=== PATIENT | female | born 1960 | race Two or more races ===

== ENCOUNTER 2018-02-01 16:10 | Inpatient (IN) | payer MEDICAID ==
[~2018-02-01] VITALS: Ht 154.9 cm; Wt 49.9 kg
[~2018-02-01 16:10] MED LIST: BENA40TA7 OR; CARI250T PO; LORA-205 OR; NOR10T PO; SERT-160 OR; SIMV-13 OR
[2018-02-01] MEDS ORDERED: LORazepam 2MG/ML-1ML VIAL IV ONE (16:45)
[2018-02-01] MEDS ORDERED: ASPirin 81 mg TAB PO ONE (16:45)
[2018-02-01 16:48] LABS: Basophils # (auto) 0 uL; Eosinophils # (auto) 0.1 uL; Eosinophils % (auto) 3.2 % (0.0-7.0); Hematocrit 41.1 % (36.0-46.0); Hemoglobin 14.1 g/dL (12.2-16.2); Lymphocytes # (auto) 1.4 uL; Lymphocytes % (auto) 29.8 % (10.0-50.0); Mean Corpuscular Hemoglobin 31.6 pg (28.0-32.0); Mean Corpuscular Hgb Conc. 34.3 g/dL (32.0-36.0); Monocytes # (auto) 0.6 uL; Monocytes % (auto) 12.1 % (0.0-12.0); Neutrophils # (auto) 2.5 uL; Neutrophils % (auto) 53.9 % (37.0-80.0); Nucleated Red Blood Cells % 0.1 %; Platelet Count (auto) 179 10^3/uL (140-450); Red Blood Cells 4.47 10^6/uL (4.0-5.20); White Blood Cell 4.6 10^3/uL (4.4-10.8)
[2018-02-01 17:07] LABS: Albumin 3.3 g/dL (3.4-5.0); Anion Gap 10 (5-15); Blood Urea Nitrogen 11 mg/dL (7-18); Calcium 8.3 mg/dL (8.5-10.1); Carbon Dioxide 24 mmol/L (21-32); Chloride 107 mmol/L (98-107); Glucose 109 mg/dL (74-106); Magnesium 1.7 mg/dL (1.6-2.6); Potassium 3.7 mmol/L (3.5-5.1); Sodium 141 mmol/L (136-145)
[2018-02-01 17:09] LABS: Alanine Aminotransferase 24 U/L (13-56); Aspartate Aminotransferase 21 U/L (15-37); BUN/Creatinine Ratio 10.9; GFR African American 72 mL/min; GFR Non-African American 60 mL/min
[2018-02-01 17:16] LABS: Alkaline Phosphatase 75 U/L (45-117); Bilirubin, Total 0.8 mg/dL (0.2-1.0); Total Protein 6.6 g/dL (6.4-8.2)
[2018-02-01] MEDS ORDERED: SODIUM CHLORIDE 0.9% 500 ML IV ONE (18:30)
[2018-02-01] MEDS ORDERED: ALUM & MAG HYDROX-SIMETH LIQ(MAALOX) 30 ML PO ONE (19:15)
[2018-02-01] MEDS ORDERED: MORPHINE SULF INJ 2 MG/ML SYRINGE 1ML IV PRN (19:15)
[2018-02-01] MEDS ORDERED: ZOLPIDEM TARTRATE 5 MG TAB PO PRN (19:15)
[2018-02-01] MEDS ORDERED: NITROGLYCERIN 0.4 MG SL TAB SL PRN ×2 (19:15)
[2018-02-01] MEDS ORDERED: ONDANSETRON HCL 4 MG/2 ML VIAL IV PRN (19:15)
[2018-02-01] MEDS ORDERED: MORPHINE SULFATE 4 MG/ML SYR/VIAL IV PRN (19:15)
[2018-02-01] MEDS ORDERED: DEXTROSE (50%) 50ML SYRG IV PRN (19:15)
[2018-02-01] MEDS ORDERED: hydrOXYzine HCL 10 MG TAB PO PRN (19:30)
[2018-02-01] MEDS ORDERED: cloNIDine HCL 0.1 MG TAB PO PRN (19:30)
[2018-02-01 21:36] LABS: Urine Bacteria FEW /hpf (None Seen); Urine Blood Negative /uL (Negative); Urine Specific Gravity 1.005 (1.001-1.035); Urine WBC 1 /hpf (0 - 5)
[2018-02-01 22:00] VITALS: BP 119/62
[2018-02-01] MEDS: busPIRone HCL 10 MG TAB PO SCH (22:00)
[2018-02-01] MEDS: GABAPENTIN 100 MG CAP PO SCH (22:00)
[2018-02-01] MEDS: SODIUM CHLOR 0.9% PF (SALINE LOCK) 10ML VIAL/SYR IV SCH (22:00)
[2018-02-01] MEDS: cloNIDine HCL 0.1 MG TAB PO SCH (22:00)
[2018-02-01] MEDS: ATORVASTATIN 20 MG TAB PO SCH (22:00)
[2018-02-01] MEDS: InsuLIN REG 1unit/0.01ml Soln (100units/ml) SC SCH (22:45)
[2018-02-01] MEDS: ACCU-CHEK COMFORT CURVE STRIP VI SCH (22:46)
[2018-02-01] MEDS: CARVEDILOL 3.125 MG TAB PO SCH (22:48)
[2018-02-01] MEDS ORDERED: GABA100C9 PO (23:47)
[2018-02-01] MEDS ORDERED: ZOLP5TAB5 PO (23:47)
[2018-02-01] MEDS ORDERED: CLON0.1T PO (23:47)
[2018-02-01] MEDS ORDERED: HYDR1CAP27 PO (23:47)
[2018-02-01] MEDS ORDERED: BUSP5TAB51 PO (23:47)
[2018-02-02 04:49] VITALS: BP 93/55
[2018-02-02] MEDS: cloNIDine HCL 0.1 MG TAB PO SCH ×3 (05:08→21:46)
[2018-02-02] MEDS: SODIUM CHLOR 0.9% PF (SALINE LOCK) 10ML VIAL/SYR IV SCH ×3 (05:09→21:46)
[2018-02-02] MEDS: InsuLIN REG 1unit/0.01ml Soln (100units/ml) SC SCH ×4 (06:01→22:01)
[2018-02-02] MEDS: ACCU-CHEK COMFORT CURVE STRIP VI SCH ×4 (06:02→22:00)
[2018-02-02 07:55] VITALS: BP 100/66
[2018-02-02 08:00] LABS: Basophils # (auto) 0 uL; Basophils % (auto) 0.9 % (0.0-2.0); Eosinophils # (auto) 0.2 uL; Eosinophils % (auto) 4.3 % (0.0-7.0); Hematocrit 43.1 % (36.0-46.0); Hemoglobin 14.5 g/dL (12.2-16.2); Lymphocytes # (auto) 1.4 uL; Lymphocytes % (auto) 28.5 % (10.0-50.0); Mean Corpuscular Hemoglobin 30.9 pg (28.0-32.0); Mean Corpuscular Hgb Conc. 33.7 g/dL (32.0-36.0); Mean Corpuscular Volume 91.8 fL (80.0-100.0); Monocytes # (auto) 0.5 uL; Monocytes % (auto) 10.3 % (0.0-12.0); Neutrophils # (auto) 2.7 uL; Platelet Count (auto) 185 10^3/uL (140-450); Red Blood Cells 4.69 10^6/uL (4.0-5.20); Red Cell Distribution Width 13.8 % (11.8-14.3); White Blood Cell 4.8 10^3/uL (4.4-10.8)
[2018-02-02 08:23] LABS: Albumin 3.3 g/dL (3.4-5.0); BUN/Creatinine Ratio 13.5; Bilirubin, Total 0.4 mg/dL (0.2-1.0); Calcium 9.4 mg/dL (8.5-10.1); Magnesium 1.9 mg/dL (1.6-2.6); Potassium 4.5 mmol/L (3.5-5.1); Total Protein 6.6 g/dL (6.4-8.2)
[2018-02-02] MEDS: DOCUSATE SOD 100 MG CAP PO SCH (10:00)
[2018-02-02] MEDS: CLOPIDOGREL BISULFATE 75 MG TAB PO SCH (10:00)
[2018-02-02] MEDS: CARVEDILOL 3.125 MG TAB PO SCH ×2 (10:00→21:46)
[2018-02-02] MEDS: ASPirin 81 mg TAB PO SCH (10:00)
[2018-02-02] MEDS: busPIRone HCL 10 MG TAB PO SCH ×2 (10:00→21:46)
[2018-02-02] MEDS: BENAZEPRIL HCL 10 MG TAB PO SCH (10:00)
[2018-02-02] MEDS: GABAPENTIN 100 MG CAP PO SCH ×2 (10:42→21:45)
[2018-02-02] MEDS: LORazepam 0.5 MG TAB PO PRN ×2 (10:47→21:43)
[2018-02-02 12:18] VITALS: BP 102/66
[2018-02-02 17:01] VITALS: BP 113/58
[2018-02-02] MEDS: ACETAMINOPHEN 325 MG TAB PO PRN (21:47)
[2018-02-02] MEDS: ATORVASTATIN 20 MG TAB PO SCH (21:48)
[2018-02-02 21:58] VITALS: BP 139/96
[2018-02-03] VITALS (8 sets, daily range): BP systolic 86–116; BP diastolic 56–75
[2018-02-03] MEDS: ACETAMINOPHEN 325 MG TAB PO PRN (02:24)
[2018-02-03] MEDS: cloNIDine HCL 0.1 MG TAB PO SCH ×2 (06:00→14:00)
[2018-02-03] MEDS: LORazepam 0.5 MG TAB PO PRN ×2 (06:18→14:19)
[2018-02-03] MEDS: ACCU-CHEK COMFORT CURVE STRIP VI SCH ×3 (06:19→17:07)
[2018-02-03] MEDS: SODIUM CHLOR 0.9% PF (SALINE LOCK) 10ML VIAL/SYR IV SCH ×2 (06:19→14:18)
[2018-02-03] MEDS: InsuLIN REG 1unit/0.01ml Soln (100units/ml) SC SCH ×3 (06:20→17:08)
[2018-02-03] MEDS ORDERED: ADENOSINE 42 MG in GIVE UN-DILUTED 0 ML IV STA (08:27)
[2018-02-03] MEDS: DOCUSATE SOD 100 MG CAP PO SCH (10:00)
[2018-02-03] MEDS: BENAZEPRIL HCL 10 MG TAB PO SCH (10:00)
[2018-02-03] MEDS: ASPirin 81 mg TAB PO SCH (10:29)
[2018-02-03] MEDS: CARVEDILOL 3.125 MG TAB PO SCH (10:30)
[2018-02-03] MEDS: busPIRone HCL 10 MG TAB PO SCH (10:30)
[2018-02-03] MEDS: GABAPENTIN 100 MG CAP PO SCH (10:31)
[2018-02-03] MEDS: CLOPIDOGREL BISULFATE 75 MG TAB PO SCH (10:31)
== END 2018-02-03 18:20 | disposition home or self-care (01) | DRG 203 ==
LOC: EDBD 16:10 → ER 16:13 → TELE 16:14 → TELE-WESTW 21:52
PROVIDERS: ADMIT Internal Medicine; ATTEND Internal Medicine
DX: M94.0 Chondrocostal junction syndrome [Tietze] (principal); E11.21 Type 2 diabetes mellitus with diabetic nephropathy; I95.9 Hypotension, unspecified; E11.22 Type 2 diabetes mellitus with diabetic chronic kidney disease; E44.1 Mild protein-calorie malnutrition; J44.9 Chronic obstructive pulmonary disease, unspecified; E66.9 Obesity, unspecified; E78.5 Hyperlipidemia, unspecified; F17.210 Nicotine dependence, cigarettes, uncomplicated; F32.9 Major depressive disorder, single episode, unspecified; I12.9 Hypertensive chronic kidney disease with stage 1 through stage 4 chronic kidney disease, or unspecified chronic kidney disease; N18.2 Chronic kidney disease, stage 2 (mild); Z80.3 Family history of malignant neoplasm of breast; Z82.49 Family history of ischemic heart disease and other diseases of the circulatory system; Z68.20 Body mass index [BMI] 20.0-20.9, adult; Z85.3 Personal history of malignant neoplasm of breast; Z83.3 Family history of diabetes mellitus
CPT/HCPCS: 36415; 71045; 78452; 80053; 80061; 81001; 82962; 83036; 83735; 83880; 84443; 84484; 85025; 87045; 87493; 87899; 93005; 93017; 93306; 94761; 96361; 96374; J0153; J1815

== ENCOUNTER 2019-10-19 13:16 | Emergency (ER) | payer MEDICAID ==
[~2019-10-19] VITALS: Ht 152.4 cm; Wt 72.6 kg
[~2019-10-19 13:16] MED LIST changes: +BUSP5TAB51 PO; -CARI250T PO; +CLON0.1T PO; +GABA100C9 PO; +HYDR1CAP27 PO; -LORA-205 OR; -NOR10T PO; -SERT-160 OR; +ZOLP5TAB5 PO
[2019-10-19] MEDS ORDERED: hydrALAZINE HCL 20 MG/ML VL IV ONE (13:45)
[2019-10-19] MEDS ORDERED: SODIUM CHLORIDE 0.9% 1,000 ML IV ONE (13:52)
[2019-10-19 14:20] LABS: Basophils # (auto) 0 10 ^3/uL (0-0.2); Basophils % (auto) 0.6 % (0.0-2.0); Eosinophils # (auto) 0.1 10 ^3/uL (0-0.8); Eosinophils % (auto) 1.2 % (0.0-7.0); Hematocrit 47.7 % (36.0-46.0); Hemoglobin 16.4 g/dL (12.2-16.2); Lymphocytes # (auto) 1.5 10 ^3/uL (0.4-5.4); Lymphocytes % (auto) 20.4 % (10.0-50.0); Mean Corpuscular Hemoglobin 30.3 pg (28.0-32.0); Mean Corpuscular Hgb Conc. 34.4 g/dL (32.0-36.0); Monocytes # (auto) 0.4 10 ^3/uL (0-1.3); Monocytes % (auto) 5.9 % (0.0-12.0); Neutrophils # (auto) 5.2 10 ^3/uL (1.6-8.6); Neutrophils % (auto) 71.9 % (37.0-80.0); Nucleated Red Blood Cells % 0.9 %; Platelet Count (auto) 240 10^3/uL (140-450); Red Blood Cells 5.42 10^6/uL (4.0-5.20); White Blood Cell 7.3 10^3/uL (4.4-10.8)
[2019-10-19 14:42] LABS: Albumin 4.2 g/dL (3.4-5.0); BUN/Creatinine Ratio 19.8; Bilirubin, Total 0.7 mg/dL (0.2-1.0); Calcium 9.9 mg/dL (8.5-10.1); Magnesium 2.2 mg/dL (1.6-2.6)
[2019-10-19] MEDS ORDERED: ACETAMINOPHEN 325 MG TAB PO ONE (14:45)
[2019-10-19] MEDS ORDERED: METOCLOPRAMIDE HCL 5MG/ml INJ 2ml VIAL IV ONE (15:00)
[2019-10-19] MEDS ORDERED: KETOROLAC TROMETH 30 MG/ML 1ML VIAL IV ONE (15:00)
[2019-10-19 16:04] LABS: Urine Bacteria NONE SEEN /hpf (None Seen); Urine Blood Negative /uL (Negative); Urine Mucus FEW (None Seen); Urine Specific Gravity 1.012 (1.001-1.035); Urine WBC 75 /hpf (0 - 5)
[2019-10-19] MEDS ORDERED: cefTRIAXone 1GM/50ML D5W 50 ML IV ONE (16:45)
[2019-10-19 18:00] VITALS: BP 108/78
== END 2019-10-19 18:18 | disposition home or self-care (01) ==
LOC: ER 13:16
DX: G43.909 Migraine, unspecified, not intractable, without status migrainosus (principal); N39.0 Urinary tract infection, site not specified; E11.65 Type 2 diabetes mellitus with hyperglycemia; E87.1 Hypo-osmolality and hyponatremia; Z85.3 Personal history of malignant neoplasm of breast
CPT/HCPCS: 36415; 70450; 71046; 80053; 81001; 83735; 84443; 85025; 93005; 96361; 96365; 96375; 99285; J0696; J1885; J2765; J7030

== ENCOUNTER 2019-11-16 10:56 | Emergency (ER) | payer MEDICAID ==
[~2019-11-16] VITALS: Ht 152.4 cm; Wt 70.3 kg
[2019-11-16 12:44] VITALS: BP 165/74
[2019-11-16] MEDS ORDERED: KETOROLAC TROMETH 60MG/2ML VIAL IM ONE (12:45)
[2019-11-16 13:29] LABS: Basophils # (auto) 0.1 10 ^3/uL (0-0.2); Eosinophils # (auto) 0.2 10 ^3/uL (0-0.8); Eosinophils % (auto) 4.1 % (0.0-7.0); Hemoglobin 14.4 g/dL (12.2-16.2); Lymphocytes # (auto) 1.3 10 ^3/uL (0.4-5.4); Lymphocytes % (auto) 22.3 % (10.0-50.0); Mean Corpuscular Hemoglobin 30.8 pg (28.0-32.0); Mean Corpuscular Hgb Conc. 33.4 g/dL (32.0-36.0); Mean Corpuscular Volume 92.2 fL (80.0-100.0); Monocytes # (auto) 0.4 10 ^3/uL (0-1.3); Monocytes % (auto) 6.1 % (0.0-12.0); Neutrophils % (auto) 66.5 % (37.0-80.0); Platelet Count (auto) 347 10^3/uL (140-450); Red Blood Cells 4.66 10^6/uL (4.0-5.20)
[2019-11-16 13:51] LABS: Albumin 3.7 g/dL (3.4-5.0); Anion Gap 8 (5-15); Blood Urea Nitrogen 11 mg/dL (7-18); Calcium 9.5 mg/dL (8.5-10.1); Carbon Dioxide 27 mmol/L (21-32); Chloride 103 mmol/L (98-107); Glucose 318 mg/dL (74-106); Potassium 3.9 mmol/L (3.5-5.1); Sodium 138 mmol/L (136-145)
[2019-11-16 13:53] LABS: Alanine Aminotransferase 30 U/L (13-56); Aspartate Aminotransferase 27 U/L (15-37); Bilirubin, Total 0.3 mg/dL (0.2-1.0); GFR African American 69 mL/min; GFR Non-African American 57 mL/min; Total Protein 7.6 g/dL (6.4-8.2)
[2019-11-16 13:57] LABS: Alkaline Phosphatase 121 U/L (45-117); BUN/Creatinine Ratio 10.5
[2019-12-26] MEDS ORDERED: METF-370 PO (12:28)
== END 2019-11-16 14:05 | disposition home or self-care (01) ==
LOC: ER 10:56
DX: M54.6 Pain in thoracic spine (principal); K76.0 Fatty (change of) liver, not elsewhere classified; E11.9 Type 2 diabetes mellitus without complications; J44.9 Chronic obstructive pulmonary disease, unspecified; E78.5 Hyperlipidemia, unspecified; Z98.51 Tubal ligation status; Z87.891 Personal history of nicotine dependence
CPT/HCPCS: 36415; 71046; 76705; 80053; 83690; 84484; 85025; 93005; 96372; 99285; J1885

== ENCOUNTER 2019-12-24 13:09 | Inpatient (IN) | payer MEDICAID ==
[~2019-12-24] VITALS: Ht 160 cm; Wt 79.2 kg
[2019-12-24] MEDS ORDERED: SODIUM CHLORIDE 0.9% 1,000 ML IV ONE ×3 (13:40→16:30)
[2019-12-24 14:15] LABS: Basophils # (auto) 0 10 ^3/uL (0-0.2); Basophils % (auto) 0.5 % (0.0-2.0); Eosinophils # (auto) 0.1 10 ^3/uL (0-0.8); Eosinophils % (auto) 1.6 % (0.0-7.0); Hematocrit 41.5 % (36.0-46.0); Hemoglobin 14.2 g/dL (12.2-16.2); Lymphocytes # (auto) 0.9 10 ^3/uL (0.4-5.4); Lymphocytes % (auto) 13.5 % (10.0-50.0); Mean Corpuscular Hemoglobin 31.9 pg (28.0-32.0); Mean Corpuscular Hgb Conc. 34.3 g/dL (32.0-36.0); Monocytes # (auto) 0.3 10 ^3/uL (0-1.3); Monocytes % (auto) 5.2 % (0.0-12.0); Neutrophils % (auto) 79.2 % (37.0-80.0); Nucleated Red Blood Cells % 0.1 %; Platelet Count (auto) 235 10^3/uL (140-450); Red Blood Cells 4.46 10^6/uL (4.0-5.20); Red Cell Distribution Width 14.1 % (11.8-14.3); White Blood Cell 6.3 10^3/uL (4.4-10.8)
[2019-12-24 14:33] LABS: INR 1.05 (0.9-1.15); Partial Thromboplastin Time 28.1 sec (23.0-31.2)
[2019-12-24 14:38] LABS: Chloride 95 mmol/L (98-107); Potassium 4.1 mmol/L (3.5-5.1); Sodium 127 mmol/L (136-145)
[2019-12-24 14:43] LABS: Alanine Aminotransferase 27 U/L (13-56); Albumin 3.5 g/dL (3.4-5.0); Anion Gap 8 (5-15); Aspartate Aminotransferase 31 U/L (15-37); BUN/Creatinine Ratio 7.8; Blood Urea Nitrogen 10 mg/dL (7-18); Calcium 8.8 mg/dL (8.5-10.1); Carbon Dioxide 24 mmol/L (21-32); GFR African American 55 mL/min; GFR Non-African American 45 mL/min; Glucose 153 mg/dL (74-106)
[2019-12-24 14:47] LABS: Alkaline Phosphatase 75 U/L (45-117); Bilirubin, Total 0.5 mg/dL (0.2-1.0); Total Protein 7.1 g/dL (6.4-8.2)
[2019-12-24 20:37] LABS: Urine Bacteria NONE SEEN /hpf (None Seen); Urine Blood Negative /uL (Negative); Urine Specific Gravity 1.007 (1.001-1.035); Urine WBC 1 /hpf (0 - 5)
[2019-12-24] MEDS ORDERED: ACETAMINOPHEN 500 MG TAB PO PRN (21:30)
[2019-12-24] MEDS ORDERED: DEXTROSE (50%) 50ML SYRG IV PRN (21:30)
[2019-12-24] MEDS ORDERED: DOCUSATE SOD 100 MG CAP PO PRN (21:30)
[2019-12-24] MEDS ORDERED: ONDANSETRON HCL 4 MG/2 ML VIAL IV PRN (21:30)
[2019-12-24] MEDS ORDERED: ALBUTEROL SULF HFA 90MCG INH 200DOSE IN SCH (22:00)
[2019-12-24] MEDS ORDERED: DOXYCYCLINE 100 MG TAB/CAP PO SCH (22:00)
[2019-12-24] MEDS: SODIUM CHLORIDE 0.9% 1,000 ML IV SCH (22:36)
[2019-12-24] MEDS: ACETAMINOPHEN 325 MG TAB PO PRN (22:52)
[2019-12-24] MEDS: HYDROcodone-ACET 5/325MG TAB PO PRN (23:49)
[2019-12-25] MEDS: ACCU-CHEK COMFORT CURVE STRIP VI SCH ×6 (00:15→21:59)
[2019-12-25] MEDS: ZOLPIDEM TARTRATE 5 MG TAB PO PRN ×2 (01:46→21:59)
[2019-12-25] MEDS: InsuLIN REG 1unit/0.01ml Soln (100units/ml) SC SCH ×6 (04:00→21:52)
[2019-12-25 05:58] LABS: Basophils # (auto) 0 10 ^3/uL (0-0.2); Basophils % (auto) 0.8 % (0.0-2.0); Eosinophils # (auto) 0.2 10 ^3/uL (0-0.8); Eosinophils % (auto) 3.2 % (0.0-7.0); Hematocrit 36.1 % (36.0-46.0); Hemoglobin 12.6 g/dL (12.2-16.2); Lymphocytes # (auto) 1.6 10 ^3/uL (0.4-5.4); Lymphocytes % (auto) 27.7 % (10.0-50.0); Mean Corpuscular Hemoglobin 32.2 pg (28.0-32.0); Mean Corpuscular Hgb Conc. 34.9 g/dL (32.0-36.0); Mean Corpuscular Volume 92.3 fL (80.0-100.0); Monocytes # (auto) 0.5 10 ^3/uL (0-1.3); Monocytes % (auto) 7.9 % (0.0-12.0); Neutrophils # (auto) 3.5 10 ^3/uL (1.6-8.6); Neutrophils % (auto) 60.4 % (37.0-80.0); Nucleated Red Blood Cells % 0.1 %; Platelet Count (auto) 201 10^3/uL (140-450); Red Blood Cells 3.91 10^6/uL (4.0-5.20); Red Cell Distribution Width 14.3 % (11.8-14.3); White Blood Cell 5.8 10^3/uL (4.4-10.8)
[2019-12-25 06:24] LABS: Albumin 2.8 g/dL (3.4-5.0); Calcium 7.9 mg/dL (8.5-10.1); Potassium 3.9 mmol/L (3.5-5.1)
[2019-12-25 06:27] LABS: BUN/Creatinine Ratio 12.8; Bilirubin, Total 0.2 mg/dL (0.2-1.0); Total Protein 5.8 g/dL (6.4-8.2)
[2019-12-25] MEDS ORDERED: ZINC SULFATE 220mg CAP or TAB PO SCH (10:00)
[2019-12-25] MEDS ORDERED: ASCORBIC ACID 1,000 MG TAB PO SCH (10:00)
[2019-12-25] MEDS: ENOXAPARIN SOD 40 MG/0.4 ML SYRINGE SC SCH (10:00)
[2019-12-25 11:03] LABS: Amphetamine Screen, Urine NEGATIVE (NEGATIVE); Barbiturate Scree,Urine NEGATIVE (NEGATIVE); Benzodiazephine Screen, Urine NEGATIVE (NEGATIVE); Cannabinoid Screen, Urine NEGATIVE (NEGATIVE); Cocaine Screen, Urine NEGATIVE (NEGATIVE); Opiate Scree,Urine NEGATIVE (NEGATIVE); Phencyclidine Screen, Urine NEGATIVE (NEGATIVE)
[2019-12-25] MEDS: ACETAMINOPHEN 325 MG TAB PO PRN (13:08)
[2019-12-25] MEDS ORDERED: DEXTROSE (50%) 50ML SYRG IV PRN (13:30)
[2019-12-25] MEDS ORDERED: hydrOXYzine 25 MG TAB or CAP PO PRN (13:30)
[2019-12-25] MEDS: SODIUM CHLORIDE 0.9% 1,000 ML IV SCH (14:06)
[2019-12-25] MEDS: HYDROcodone-ACET 5/325MG TAB PO PRN (15:55)
[2019-12-25] MEDS ORDERED: SUMAtriptan SUCCINATE 25 MG TAB PO ONE (18:00)
--- NOTE | 2019-12-25 19:45 | NUR ---
arrival pt arrived via wheel chair, from ER. pt A&Ox4 and ambulatory. respirations even and nonlabored on room air. no s/s of pain or distress at this time. pt transferred self to hospital bed.
[2019-12-25 19:50] VITALS: BP 114/75
[2019-12-25] MEDS: busPIRone HCL 10 MG TAB PO SCH (21:59)
[2019-12-25 22:00] VITALS: BP 114/75
[2019-12-25] MEDS ORDERED: busPIRone HCL 10 MG TAB PO SCH (22:00)
[2019-12-26 05:00] VITALS: BP 107/67
[2019-12-26] MEDS: ACCU-CHEK COMFORT CURVE STRIP VI SCH ×2 (06:13→11:58)
[2019-12-26] MEDS: SODIUM CHLORIDE 0.9% 1,000 ML IV SCH (06:14)
[2019-12-26] MEDS: InsuLIN REG 1unit/0.01ml Soln (100units/ml) SC SCH ×2 (06:14→11:30)
--- NOTE | 2019-12-26 07:00 | NUR ---
Opening Shift Note Received report on the patient. Awake lying in bed. Patient shows no signs of distress at this time. Discussed the plan of care with the patient. Bed in lowest position, side rails up x2, and the call light is within reach.
--- NOTE | 2019-12-26 07:02 | NUR ---
closing note pt awake alert and oriented x4. respirations even and nonlabored on room air. no s/s of pain or discomfort. pt is currently watching tv. bed in low locked position, call light within reach.
[2019-12-26 09:02] VITALS: BP 132/76
[2019-12-26] MEDS: busPIRone HCL 10 MG TAB PO SCH (09:14)
[2019-12-26] MEDS: ENOXAPARIN SOD 40 MG/0.4 ML SYRINGE SC SCH (09:15)
[2019-12-26] MEDS: HYDROcodone-ACET 5/325MG TAB PO PRN (09:20)
[2019-12-26 09:30] LABS: Basophils # (auto) 0.1 10 ^3/uL (0-0.2); Basophils % (auto) 0.6 % (0.0-2.0); Eosinophils # (auto) 0.3 10 ^3/uL (0-0.8); Hematocrit 38.5 % (36.0-46.0); Hemoglobin 13.1 g/dL (12.2-16.2); Lymphocytes # (auto) 1.6 10 ^3/uL (0.4-5.4); Lymphocytes % (auto) 18.4 % (10.0-50.0); Mean Corpuscular Hemoglobin 31.9 pg (28.0-32.0); Mean Corpuscular Hgb Conc. 34.1 g/dL (32.0-36.0); Mean Corpuscular Volume 93.5 fL (80.0-100.0); Monocytes # (auto) 0.5 10 ^3/uL (0-1.3); Monocytes % (auto) 5.4 % (0.0-12.0); Neutrophils # (auto) 6.2 10 ^3/uL (1.6-8.6); Neutrophils % (auto) 72.6 % (37.0-80.0); Nucleated Red Blood Cells % 0.1 %; Platelet Count (auto) 196 10^3/uL (140-450); Red Blood Cells 4.12 10^6/uL (4.0-5.20); Red Cell Distribution Width 14.9 % (11.8-14.3); White Blood Cell 8.6 10^3/uL (4.4-10.8)
[2019-12-26 09:52] LABS: Albumin 3.3 g/dL (3.4-5.0); Potassium 3.9 mmol/L (3.5-5.1)
[2019-12-26 09:56] LABS: BUN/Creatinine Ratio 14.6; Bilirubin, Total 0.3 mg/dL (0.2-1.0); Calcium 9.3 mg/dL (8.5-10.1); Total Protein 6.8 g/dL (6.4-8.2)
[2019-12-26] MEDS ORDERED: MULTIPLE VITAMINS W/ MINERALS TAB PO SCH (10:00)
--- NOTE | 2019-12-26 10:40 | NUR ---
Dr Denton at bedside. New orders received.
[2019-12-26 12:00] VITALS: BP 129/70
[2019-12-26] MEDS ORDERED: METF-370 PO (12:28)
[2019-12-26 14:19] VITALS: BP 129/70
--- NOTE | 2019-12-26 14:49 | NUR ---
Called social work faculty member Darcy to follow up on home health set up. Left message. Awaiting call back.
--- NOTE | 2019-12-26 14:53 | NUR ---
Assessment Regarding social service consult for home health physical therapy, safety evaluation, medication management and vitals. Per AARON Mccarty patient is refusing home health service and refusing to speak to social service.
--- NOTE | 2019-12-26 14:53 | NUR ---
janitorial maintenance worker Darcy called and wanted to speak to the patient. The patient did not want to speak with her and also stated that "I have help at home. I don't need home health services". Let Darcy know.
== END 2019-12-26 15:45 | disposition home or self-care (01) | DRG 207 ==
LOC: ER 13:09 → EDBD 13:09 → TELE 13:10 → TELE-CENTR 12-25 19:36
PROVIDERS: ADMIT Hospitalist; ATTEND Internal Medicine
DX: I95.9 Hypotension, unspecified (principal); T46.5X5A Adverse effect of other antihypertensive drugs, initial encounter; N17.0 Acute kidney failure with tubular necrosis; I10 Essential (primary) hypertension; J44.9 Chronic obstructive pulmonary disease, unspecified; E86.0 Dehydration; E11.21 Type 2 diabetes mellitus with diabetic nephropathy; E44.1 Mild protein-calorie malnutrition; E78.5 Hyperlipidemia, unspecified; E86.1 Hypovolemia; Z20.828 Contact with and (suspected) exposure to other viral communicable diseases; Z87.891 Personal history of nicotine dependence; Z90.49 Acquired absence of other specified parts of digestive tract; Z90.89 Acquired absence of other organs; Z98.51 Tubal ligation status; Z82.49 Family history of ischemic heart disease and other diseases of the circulatory system; Z83.3 Family history of diabetes mellitus; Z80.3 Family history of malignant neoplasm of breast; Z79.899 Other long term (current) drug therapy
CPT/HCPCS: 36415; 70450; 71045; 80053; 80307; 81001; 82533; 82962; 83036; 83735; 83880; 84443; 84484; 85025; 85610; 85730; 93005; G0378; J1815

== ENCOUNTER 2025-04-04 21:42 | Inpatient (IN) | payer SELFPAY ==
[~2025-04-04] VITALS: Ht 147.3 cm; Wt 60.1 kg
[~2025-04-04 21:42] MED LIST changes: -BENA40TA7 OR; -CLON0.1T PO; +GABA-1308 PO; -GABA100C9 PO; +METF-370 PO; -SIMV-13 OR; +SIMV40TA18 OR
--- NOTE | 2025-04-04 23:48 | ED.PDOC ---
History of Present Illness HPI Comments 65-year-old female who presents to the emergency department with abdominal pain that started 3 days ago. Pain is in left lower quadrant, 10/10 in severity. Associated with nausea, vomiting and diarrhea. Patient had recently been on antibiotics for infected finger. Past medical history includes MS, diabetes, hypertension, hyperlipidemia. She also has a history of and tonsillectomy. REVIEW OF SYSTEMS: General: No fever, no chills, or fatigue HEENT: No sore throat, no earache, no congestion, no neck pain. Cardiac: No chest pain. No palpitations. Lungs: No shortness of breath, no cough. GI: No nausea, no vomiting, no diarrhea, no constipation, no abdominal pain : No dysuria, frequency, or urgency. No hematuria. Musculoskeletal: No joint pain , no joint swelling, no extremity edema. Skin: No rash, no itching. Neuro: No headache, no dizziness, no weakness (And as sated in HPI) PHYSICAL EXAM: General: Awake, alert and oriented. Patient appears uncomfortable Skin: Skin in warm, dry and intact without rashes or lesions. HEENT: The head is normocephalic and atraumatic. Conjunctivae are clear without exudates or hemorrhage. Sclera is non-icteric. Neck: Normal range of motion. No JVD. Cardiac: Regular rate Respiratory: No signs of respiratory distress. No Stridor. Abdomen: Abdomen is generally tender Neurological: The patient is awake, alert and oriented to person, place, and time with normal speech. Speech is clear. There is no facial asymmetry. Psychiatric: Appropriate mood and affect. Good judgement and insight. Chief Complaint: Abdominal Pain Time Seen by MD: 22:25 Primary Care Provider: JUSTICE Allergies: Coded Allergies: Acetaminophen (Verified Allergy, Unknown, 04/04/25) Tramadol (Verified Allergy, Unknown, 02/01/18) Home Meds Active Scripts Metformin Hydrochloride (Metformin Hcl) 500 Mg Tab, 1 TAB PO BID, #60 TAB Prov:MICAELA ALMAGUER MD 12/26/19 Reported Medications Buspirone Hcl (Buspirone Hcl) 5 Mg Tab, 7.5 MG PO BID for 30 Days, MG 02/01/18 Hydroxyzine Pamoate (Hydroxyzine Pamoate) 25 Mg Cap, 25 MG PO Q6HPRN PRN for ANXIETY, CAP 02/01/18 Gabapentin (Gabapentin) 100 Mg Cap, 100 MG PO BID for 30 Days, MG 02/01/18 Zolpidem Tartrate (Zolpidem Tartrate) 5 Mg Tab, 5 MG PO HS, TAB 02/01/18 Simvastatin (Simvastatin) 40 Mg Tab, 40 MG OR HS 07/31/11 Mode of Arrival: EMS Past Medical History PAST MEDICAL HISTORY: Cancer, COPD, DM, High Lipids, HTN Surgical History: Appendectomy, BTL, , Tonsillectomy BAG LOADER History: No Pertinent BAG LOADER History Family History Family History: Reviewed,noncontributory to illness, No family hx of Cancer, No family hx of DM, No family hx of HTN Social History Smoker: Quit Less Than 1 Year Alcohol: Denies ETOH Use Drugs: Denies Drug Use Lives In: Home Was a procedure done? Was a procedure done?: No Differential Dx Considerations may include: Differential diagnoses considered include: Abdominal aortic aneurysm, MD, esophageal rupture, intestinal obstruction, mesenteric ischemia, perforated viscus or solid organ rupture, CHF with hepatomegaly, pneumonia, abscess, appendicitis, biliary disease, diverticulitis, gastritis, gastroenteritis, hepatitis, hernia, inflammatory bowel disease, pancreatitis, peptic ulcer disease, urinary tract infection, ureteral colic, constipation, GERD, irritable syndrome, abdominal wall pain, nonspecific abdominal pain, herpes zoster, nephrolithiasis. X-Ray, Labs, Meds, VS Vital Signs Date Time Temp Pulse Resp B/P (MAP) Pulse Ox O2 Delivery O2 Flow Rate FiO2 04/05/25 00:36 Room Air* 0 21 04/05/25 00:31 69 19 154/72 04/05/25 00:07 98.5 89 16 154/91 (112) 99 98.5 04/04/25 21:53 98.5 91 18 138/72 95 98.5 Lab Test 04/04/25 23:45 Range/Units White Blood Count 10.8 4.4-10.8 10^3/uL Red Blood Count 4.25 4.0-5.20 10^6/uL Hemoglobin 15.0 12.2-16.2 g/dL Hematocrit 44.0 36.0-46.0 % Mean Corpuscular Volume 103.6 H 80.0-100.0 fL Mean Corpuscular Hemoglobin 35.4 H 28.0-32.0 pg Mean Corpuscular Hemoglobin Concent 34.1 32.0-36.0 g/dL Red Cell Distribution Width 16.2 H 11.8-14.3 % Platelet Count 304 140-450 10^3/uL Mean Platelet Volume 6.6 L 6.9-10.8 fL Neutrophils (%) (Auto) 90.0 H 37.0-80.0 % Lymphocytes (%) (Auto) 7.1 L 10.0-50.0 % Monocytes (%) (Auto) 2.6 0.0-12.0 % Eosinophils (%) (Auto) 0.0 0.0-7.0 % Basophils (%) (Auto) 0.3 0.0-2.0 % Neutrophils # (Auto) 9.7 H 1.6-8.6 10 ^3/uL Lymphocytes # (Auto) 0.8 0.4-5.4 10 ^3/uL Monocytes # (Auto) 0.3 0-1.3 10 ^3/uL Eosinophils # (Auto) 0 0-0.8 10 ^3/uL Basophils # (Auto) 0 0-0.2 10 ^3/uL Nucleated Red Blood Cells 0.0 % Sodium Level 141 136-145 mmol/L Potassium Level 4.1 3.5-5.1 mmol/L Chloride Level 103 98-107 mmol/L Carbon Dioxide Level 26 20-31 mmol/L Anion Gap 12 5-15 Blood Urea Nitrogen 5 L 9-23 mg/dL Creatinine 0.60 0.550-1.02 mg/dL Glomerular Filtration Rate Calc 98 >90 mL/min BUN/Creatinine Ratio 8.3 L 10.0-20.0 Serum Glucose 136 H 74-106 mg/dL Lactic Acid Level 2.0 0.4-2.0 mmol/L Calcium Level 10.3 8.7-10.4 mg/dL Lipase 24 12-53 U/L Current Medications Medications (Trade) Dose Ordered Sig/Shanika Route Start Time Stop Time Status Last Admin Sodium Chloride 1,000 ml @ 1,000 mls/hr Q1H ONCE IV 04/04/25 23:30 04/05/25 00:29 DC 04/05/25 00:31 Ondansetron HCl (Zofran) 4 mg ONCE ONCE IV 04/04/25 23:30 04/04/25 23:31 DC 04/05/25 00:30 Ketorolac Tromethamine (Toradol Injection) 15 mg ONCE ONCE IV 04/04/25 23:30 04/04/25 23:31 DC 04/05/25 00:30 Hydromorphone HCl (Dilaudid Injection) 0.5 mg ONCE ONCE IV 04/04/25 23:30 04/04/25 23:31 DC 04/05/25 00:31 Time of 1ST Reevaluation: 23:47 Reevaluation 1ST: Unchanged Patient Education/Counseling: Need For Follow Up Family Education/Counseling: No Family Present SEPSIS Sepsis Screen Date sepsis recognized/suspect: Apr 04, 2025 Time Sepsis recognized/suspect: 2146 Recent Procedure: No On Antibiotic Therapy: No Respiratory Rate >20: No Heart Rate >90: Yes Temp<36 C (96.8 F) or >38.3 C: No SBP <90 or MAP <65 mmHG: No New Acute Mental Status Change: No Is the patient on CPAP, BIPAP,: No Physician Orders Urinalysis (04/04/25 23:20) Ct Ab Pel Wo Con-No Oral Or Iv (04/04/25 23:20) Vital Signs Date Time Temp Pulse Resp B/P (MAP) Pulse Ox O2 Delivery O2 Flow Rate FiO2 04/05/25 00:36 Room Air* 0 21 04/05/25 00:31 69 19 154/72 04/05/25 00:07 98.5 89 16 154/91 (112) 99 98.5 04/04/25 21:53 98.5 91 18 138/72 95 98.5 Laboratory Tests Test 04/04/25 23:45 Lactic Acid Level 2.0 mmol/L (0.4-2.0) White Blood Count 10.8 10^3/uL (4.4-10.8) Medications Medications Dose Ordered Sig/Shanika Route Start Time Stop Time Status Last Admin Dose Admin Hydromorphone HCl 0.5 mg ONCE ONCE IV 04/04/25 23:30 04/04/25 23:31 DC 04/05/25 00:31 Ketorolac Tromethamine 15 mg ONCE ONCE IV 04/04/25 23:30 04/04/25 23:31 DC 04/05/25 00:30 Ondansetron HCl 4 mg ONCE ONCE IV 04/04/25 23:30 04/04/25 23:31 DC 04/05/25 00:30 Sodium Chloride 1,000 ml @ 1,000 mls/hr Q1H ONCE IV 04/04/25 23:30 04/05/25 00:29 DC 04/05/25 00:31 Departure 1 Departure Time of Disposition: 01:04 Impression: Primary Impression: Stercoral colitis Additional Impression: Abdominal pain Disposition: ADMITTED INPATIENT Condition: Stable Comments Patient is stabilized emergency department Patient admitted to hospitalist service for further treatment, evaluation and monitoring. Critical Care Note Critical Care Time?: No Stability Stability form required: No Heart Score Heart Score: Heart Score Response (Comments) Value History N/A 0 EKG N/A 0 Age N/A 0 Risk Factors N/A 0 Troponin N/A 0 Total 0 BRIAN WALTERS MD Apr 04, 2025 23:48
[2025-04-04 23:56] LABS: Hematocrit 44.0 % (36.0-46.0); Hemoglobin 15.0 g/dL (12.2-16.2); Mean Corpuscular Hemoglobin 35.4 pg (28.0-32.0); Mean Corpuscular Volume 103.6 fL (80.0-100.0); Nucleated Red Blood Cells % 0.0 %
[2025-04-05] VITALS (7 sets, daily range): BP systolic 141–163; BP diastolic 70–81; PULSE 69–93; RESP 16–20; TEMP 98–99.1; O2SAT 98–100
--- NOTE | 2025-04-05 00:05 | DVH ---
COMPUTERIZED TOMOGRAPHY ABDOMEN AND PELVIS WITHOUT CONTRAST REASON FOR EXAM: LEFT LOWER QUADRANT ABDOMINAL PAIN COMPARISON: None TECHNIQUE: Spiral scans were acquired from the diaphragm to the symphysis pubis without intravenous contrast administration. 2-D coronal and sagittal reformatted images were provided. Radiation optimization: All CT scans at this facility use at least one of these dose optimization techniques: Automated exposure control mA and/or kV adjustment per patient size (includes targeted exams where dose is matched to clinical indication) or iterative reconstruction. RADIATION DOSE: CTDI: 7 mGy DLP: 374 mGy-cm FINDINGS: There is minimal platelike atelectasis of the lung bases. There is no pleural effusion. There is no pericardial effusion. The spleen is not enlarged. The liver is normal in size and contour. Evaluation of the abdominal organs is suboptimal in the absence of intravenous contrast. No calcified gallstone is identified. Unenhanced appearance of the pancreas is grossly unremarkable. The adrenal glands appear normal. The kidneys are similar in size. There is no hydronephrosis of either kidney. The urinary bladder is significantly distended. The uterus and ovaries are within normal limits. No free fluid is identified in the abdomen or pelvis. There is no pathologic lymphadenopathy identified by size criteria. There is no abdominal aortic aneurysm. There is a zjiybrve-ut-jgeeb amount of stool distending the rectum. There is lower rectal wall thickening. There is presacral fat stranding. The colonic stool burden is overall moderate. The appendix is not seen and may be absent. There is no pericecal inflammatory change to suggest acute appendicitis. There is no pathologic distention of the small bowel to suggest obstruction. No acute osseous abnormality is identified. There is extensive degenerative change throughout the visualized spine. IMPRESSION: Jotrqazk-rc-dlxef amount of stool distending the rectum with lower rectal wall thickening and presacral fat stranding suggestive of stercoral proctitis. The colonic stool burden is overall moderate. Correlate clinically for constipation. Distended urinary bladder.
[2025-04-05 00:06] LABS: Chloride 103 mmol/L (98-107); Potassium 4.1 mmol/L (3.5-5.1); Sodium 141 mmol/L (136-145)
[2025-04-05 00:07] LABS: Anion Gap 12 (5-15); Calcium 10.3 mg/dL (8.7-10.4); Carbon Dioxide 26 mmol/L (20-31)
[2025-04-05 00:12] LABS: BUN/Creatinine Ratio 8.3 (10.0-20.0); Lipase 24 U/L (12-53)
[2025-04-05 00:14] LABS: Blood Urea Nitrogen 5 mg/dL (9-23); Glucose 136 mg/dL (74-106)
[2025-04-05] MEDS: KETOROLAC TROMETH 30 MG/ML 1ML VIAL IV ONE ×2 (00:30→10:43)
[2025-04-05] MEDS: ONDANSETRON HCL 4 MG/2 ML VIAL IV ONE (00:30)
[2025-04-05] MEDS: SODIUM CHLORIDE 0.9% 1,000 ML IV ONE ×2 (00:31→02:30)
[2025-04-05] MEDS: HYDROmorphone HCL 2 MG/ML VL/or syr IV ONE (00:31)
--- NOTE | 2025-04-05 01:54 | DVHHPRES ---
History of Present Illness Resident Creating Document: HARVEY PIZANO History of Present Illness Patient is a 65-year-old female with past medical history of multiple sclerosis, breast cancer, diabetes mellitus, hypertension, hyperlipidemia, presented to [facility] ED with complaint of abdominal pain. The pain is sharp and burning, started 2-3 days ago, more severe on the right side. The patient reported severe constipation approximately 5-6 days prior to admission, associated with nausea and vomiting. The patient recently completed a course of antibiotics for an infected finger at [place]. On evaluation in the ED, patient is afebrile, with a blood pressure of 154/72 mmHg, and other vital signs were stable. Initial labs show BUN 5 and serum glucose 136. Abdominal CT shows ablshntp-xo-tmouh amount of stool distending the rectum with lower rectal wall thickening and presacral fat stranding suggestive of stercoral proctitis. The patient was started on laxatives and IV fluids. Patient is admitted for further evaluation and management. Past Medical History Multiple sclerosis, breast cancer, diabetes mellitus, hypertension, hyperlipidemia Past Surgical History Appendectomy, Bilateral Tubal Ligation, , Tonsillectomy Family History: None Smoke: <1 pack per day ALCOHOL: none Drugs: None Lives: with Family Review of Systems Review of Systems Eyes: No Pain, No Vision change, No Conjunctivae inflammation, No Eyelid inflammation, No Other, No Redness ENT: No Ear pain, No Ear discharge, No Nose pain, No Nose discharge, No Nose congestion, No Mouth pain, No Mouth swelling, No Throat pain, No Throat swelling, No Other Cardiovascular: No Chest Pain, No Palpitations, No Orthopnea, No Paroxysmal No Dyspnea, No Edema, No Lt Headedness, No Other Respiratory: No Cough, No Dry, No Shortness of breath, No SOB with exertion, No Wheezing, No Hemoptysis, No Pleuritic Pain, No Sputum, No Other Gastrointestinal: Nausea, Vomiting, Abdominal Pain, No Diarrhea, Constipation, No Melena, No Hematochezia, No Other Genitourinary: No Dysuria, No Frequency, No Incontinence, No Hematuria, No Retention, No Other Musculoskeletal: No other, No neck pain, No shoulder pain, No arm pain, No back pain, No hand pain, No leg pain, No foot pain Skin: No Rash, No Lesions, No Jaundice, No Bruising, No Other Allergies: Coded Allergies: Acetaminophen (Verified Allergy, Unknown, 04/04/25) Tramadol (Verified Allergy, Unknown, 02/01/18) Exam Vital Signs Vital Signs Date Time Temp Pulse Resp B/P (MAP) Pulse Ox O2 Delivery O2 Flow Rate FiO2 04/05/25 00:36 Room Air* 0 21 04/05/25 00:31 69 19 154/72 04/05/25 00:07 98.5 99 98.5 Exam General Appearance: Moderate distress. Well developed. Well nourished. NAD Head Exam: Normal inspection Neck Exam: Normal inspection. Non-tender. Normal alignment Pulmonary/Respiratory: Chest non-tender. Clear bilateral breath sounds, no crackles, no wheezing. Cardiovascular/Chest: Regular rate and rhythm. No murmurs. No JVD. Peripheral Pulses: 2+ Radial (R). 2+ Radial (L). 2+ Pedal (R). 2+ Pedal (L) Abdominal Exam: LLQ, LUQ, RLQ, RUQ tenderness. Normal bowel sounds. Soft. normal abdomen, no visible veins, No hepatospenomegaly. No masses Ankle Exam: Negative ankle edema Lower extremities: Negative lower extremity edema Neuro/Mental Status: A&O x4. Coherent. Thoughts/Psych: Normal thought pattern. Appropriate mood and affect. Good judgement and insight Skin Exam: Normal inspection. Normal color. Warm. Dry Rectal examination: Done in the presence of a criminal defense attorney, . Rectal sphincter tone normal, rectal wall was impacted with stool, some stool removed /disimpacted, no hemorrhoid Labs/Xrays Labs Test 04/04/25 23:45 Range/Units White Blood Count 10.8 4.4-10.8 10^3/uL Red Blood Count 4.25 4.0-5.20 10^6/uL Hemoglobin 15.0 12.2-16.2 g/dL Hematocrit 44.0 36.0-46.0 % Mean Corpuscular Volume 103.6 H 80.0-100.0 fL Mean Corpuscular Hemoglobin 35.4 H 28.0-32.0 pg Mean Corpuscular Hemoglobin Concent 34.1 32.0-36.0 g/dL Red Cell Distribution Width 16.2 H 11.8-14.3 % Platelet Count 304 140-450 10^3/uL Mean Platelet Volume 6.6 L 6.9-10.8 fL Neutrophils (%) (Auto) 90.0 H 37.0-80.0 % Lymphocytes (%) (Auto) 7.1 L 10.0-50.0 % Monocytes (%) (Auto) 2.6 0.0-12.0 % Eosinophils (%) (Auto) 0.0 0.0-7.0 % Basophils (%) (Auto) 0.3 0.0-2.0 % Neutrophils # (Auto) 9.7 H 1.6-8.6 10 ^3/uL Lymphocytes # (Auto) 0.8 0.4-5.4 10 ^3/uL Monocytes # (Auto) 0.3 0-1.3 10 ^3/uL Eosinophils # (Auto) 0 0-0.8 10 ^3/uL Basophils # (Auto) 0 0-0.2 10 ^3/uL Nucleated Red Blood Cells 0.0 % Sodium Level 141 136-145 mmol/L Potassium Level 4.1 3.5-5.1 mmol/L Chloride Level 103 98-107 mmol/L Carbon Dioxide Level 26 20-31 mmol/L Anion Gap 12 5-15 Blood Urea Nitrogen 5 L 9-23 mg/dL Creatinine 0.60 0.550-1.02 mg/dL Glomerular Filtration Rate Calc 98 >90 mL/min BUN/Creatinine Ratio 8.3 L 10.0-20.0 Serum Glucose 136 H 74-106 mg/dL Lactic Acid Level 2.0 0.4-2.0 mmol/L Calcium Level 10.3 8.7-10.4 mg/dL Lipase 24 12-53 U/L SEPSIS Sepsis Screen Date sepsis recognized/suspect: Apr 04, 2025 Time Sepsis recognized/suspect: 2146 Recent Procedure: No On Antibiotic Therapy: No Respiratory Rate >20: No Heart Rate >90: Yes Temp<36 C (96.8 F) or >38.3 C: No SBP <90 or MAP <65 mmHG: No New Acute Mental Status Change: No Is the patient on CPAP, BIPAP,: No Physician Orders Urinalysis (04/04/25 23:20) Ct Ab Pel Wo Con-No Oral Or Iv (04/04/25 23:20) Vital Signs Date Time Temp Pulse Resp B/P (MAP) Pulse Ox O2 Delivery O2 Flow Rate FiO2 04/05/25 00:36 Room Air* 0 21 04/05/25 00:31 69 19 154/72 04/05/25 00:07 98.5 89 16 154/91 (112) 99 98.5 04/04/25 21:53 98.5 91 18 138/72 95 98.5 Laboratory Tests Test 04/04/25 23:45 Lactic Acid Level 2.0 mmol/L (0.4-2.0) White Blood Count 10.8 10^3/uL (4.4-10.8) Medications Medications Dose Ordered Sig/Shanika Route Start Time Stop Time Status Last Admin Dose Admin Hydromorphone HCl 0.5 mg ONCE ONCE IV 04/04/25 23:30 04/04/25 23:31 DC 04/05/25 00:31 0.5 MG Ketorolac Tromethamine 15 mg ONCE ONCE IV 04/04/25 23:30 04/04/25 23:31 DC 04/05/25 00:30 15 MG Ondansetron HCl 4 mg ONCE ONCE IV 04/04/25 23:30 04/04/25 23:31 DC 04/05/25 00:30 4 MG Sodium Chloride 1,000 ml @ 1,000 mls/hr Q1H ONCE IV 04/04/25 23:30 04/05/25 00:29 DC 04/05/25 00:31 1,000 MLS/HR Assessment/Plan Assessment/Plan Stercoral proctitis Severe constipation Intractable abdominal pain due to above Abdomen/Pelvis CT: Hbezbmwo-db-lntjw amount of stool distending the rectum with lower rectal wall thickening and presacral fat stranding. The colonic stool burden is overall moderate. Distended urinary bladder. Tap water enema Fecal disimpaction Colace 100 MG PO bid prn Lactulose 30 ML PO bid Zofran 4 MG IV q4h pain management with Tylenol and [place] IV NS 100 mls/hr ONE UA and UDS Hepatic panel Magnesium Hypertension Benazeoril 40 MG PO daily Multiple sclerosis Gabapentin 100 MG PO bid Diet: Clear liquid Goals of care: Full code, discussed for >30 minutes on 04/05/25 Plan discussed with patient Plan discussed with Dr. Olivas Plan discussed with: Patient Date of Service: Apr 05, 2025 Billing Provider: ESTELITA OLIVAS MD Common Visit Codes: [id number] INP/OBS CARE (HIGH) Secondary Visit Codes: [id number] CARE PLAN 30 MINUTES JERICAMONSTERJOYCE RESIDENT Apr 05, 2025 01:54
[2025-04-05] MEDS ORDERED: HYDROcodone-ACET 5/325MG TAB PO PRN (02:00)
[2025-04-05] MEDS ORDERED: ACETAMINOPHEN 325 MG TAB PO PRN (02:00)
[2025-04-05] MEDS ORDERED: ONDANSETRON HCL 4 MG/2 ML VIAL IV PRN (02:00)
[2025-04-05] MEDS: LACTULOSE 20Gm/30ML SOLN PO ONE (02:35)
[2025-04-05] MEDS: DOCUSATE SOD 100 MG CAP PO PRN (02:35)
[2025-04-05] MEDS: GABAPENTIN 100 MG CAP PO ONE (02:35)
[2025-04-05] MEDS: BISACODYL 5 MG EC TAB PO ONE (02:43)
[2025-04-05 02:54] LABS: Alanine Aminotransferase 14.0 U/L (7-40); Albumin 4.5 g/dL (3.2-4.8); Alkaline Phosphatase 85.0 U/L (46-116); Bilirubin, Total 0.8 mg/dL (0.2-1.0); Total Protein 7.2 g/dL (5.7-8.2)
[2025-04-05 03:03] LABS: Magnesium 1.5 mg/dL (1.6-2.6)
[2025-04-05 03:48] LABS: Bilirubin, Direct 0.3 mg/dL (<0.3)
[2025-04-05 06:09] LABS: Hemoglobin 13.1 g/dL (12.2-16.2); Nucleated Red Blood Cells % 0.0 %
[2025-04-05 06:12] LABS: Hematocrit 38.0 % (36.0-46.0); Mean Corpuscular Hemoglobin 35.7 pg (28.0-32.0); Mean Corpuscular Volume 103.3 fL (80.0-100.0)
[2025-04-05] MEDS: DEXTROSE (50%) 50ML SYRG IV ONE (06:15)
[2025-04-05] MEDS: InsuLIN REG 1unit/0.01ml Soln (100units/ml) SC ONE (06:15)
[2025-04-05 06:28] LABS: Alanine Aminotransferase 11 U/L (7-40); Albumin 3.8 g/dL (3.2-4.8); Alkaline Phosphatase 69 U/L (46-116); Anion Gap 12 (5-15); BUN/Creatinine Ratio 11.8 (10.0-20.0); Bilirubin, Total 0.7 mg/dL (0.2-1.0); Calcium 9.4 mg/dL (8.7-10.4); Carbon Dioxide 24 mmol/L (20-31); Chloride 107 mmol/L (98-107); Potassium 3.6 mmol/L (3.5-5.1); Sodium 143 mmol/L (136-145); Total Protein 6.3 g/dL (5.7-8.2)
[2025-04-05 06:29] LABS: Blood Urea Nitrogen 6 mg/dL (9-23); Glucose 122 mg/dL (74-106)
[2025-04-05] MEDS: MAGNESIUM SULFATE 1GM/100ML 100 ML IV ONE (06:43)
[2025-04-05] MEDS: ACCU-CHEK COMFORT CURVE STRIP VI ONE (06:53)
[2025-04-05 08:29] LABS: Urine Protein, UAD Negative (Negative)
[2025-04-05 08:45] LABS: Benzodiazephine Screen, Urine Neg (NEGATIVE)
[2025-04-05 08:50] LABS: Amphetamine Screen, Urine Neg (NEGATIVE); Barbiturate Scree,Urine Neg (NEGATIVE); Cannabinoid Screen, Urine Neg (NEGATIVE); Cocaine Screen, Urine Neg (NEGATIVE); Opiate Scree,Urine Pos (NEGATIVE); Phencyclidine Screen, Urine Neg (NEGATIVE)
[2025-04-05] MEDS: LACTULOSE 20Gm/30ML SOLN PO SCH (09:00)
[2025-04-05] MEDS: GABAPENTIN 100 MG CAP PO SCH (09:00)
[2025-04-05] MEDS: BENAZEPRIL HCL 10 MG TAB PO SCH (10:05)
[2025-04-05 10:13] LABS: Hepatitis B Surface Antigen Negative (Negative)
[2025-04-05 10:32] LABS: Hepatitis C Antibody Negative (Negative)
[2025-04-05] MEDS: MAGNESIUM OXIDE 400 MG TAB PO ONE (10:42)
[2025-04-05] MEDS: LIDOCAINE 5% TOPICAL PATCH TOP ONE (11:12)
[2025-04-05 16:51] LABS: Free T4 (Free Thyroxine) 1.05 ng/dL (0.89-1.76)
[2025-04-05] MEDS: POLYETHYLENE GLYCOL 17 GM PWDR PO SCH (17:07)
[2025-04-05] MEDS: CLINDAMYCIN 300MG IV 50 ML IV SCH (17:07)
--- NOTE | 2025-04-05 17:18 | DVHPNRES ---
Progress Note Date Seen: Apr 05, 2025 Resident Creating Document: FRANCK BURGER RESIDENT Medical Necessity Reason Pt with a Central, PICC or Fol: No Subjective Review of Systems Brief history on admission: This is a 65-year-old female with past medical history of multiple sclerosis, breast cancer s/p chemotherapy, radiotherapy at [facility] (in remission 6 months back), diabetes mellitus, hypertension, hyperlipidemia, presented to the ER with complaint of lower abdominal pain. The pain is sharp and burning, started 2-3 days ago, more severe on the right side. The patient reported severe constipation approximately 5-6 days prior to admission, associated with nausea and vomiting. She reports 3 vomiting episodes without hematemesis and leaky, watery stools 2 days back. The patient recently completed a course of antibiotics for an infected soft tissue infection of index finger at [place]. Patient has never completed colonoscopy. PMHx: Multiple sclerosis, breast cancer s/p chemotherapy, radiotherapy at [facility] (in remission 6 months back), diabetes mellitus, hypertension, hyperlipidemia PSHx: Appendectomy, Bilateral Tubal Ligation, , Tonsillectomy Family history: Family history of breast cancer Social history: Uses marijuana vape (last used 4 days back), denies alcohol, smoking, any other drug use. Lives in house with family. Allergic history: Acetaminophen PCP: Dr Suarez ROS: Constitutional: Denies weight loss, fever and chills. HEENT: Denies changes in vision and hearing. Respiratory: Denies shortness of breath and cough Cardiovascular: Denies chest discomfort or palpitations GI: Lower abdominal pain, constipation, vomiting; denies nausea, and diarrhea. : Denies dysuria and urinary frequency. Musculoskeletal: Denies myalgias and joint pain Skin: Denies rash and pruritus. Neurological: Denies dizziness, headache, vision or hearing problems 04/05/2025: Patient was seen at bedside today. Continues to complain of abdominal pain. Objective vital signs Vital Sign Date Time Temp Pulse Resp B/P (MAP) Pulse Ox O2 Delivery O2 Flow Rate FiO2 04/05/25 13:00 98.3 89 20 163/79 (107) 98 98.3 04/05/25 03:56 Room Air* 0 21 Total Intake and Output 04/04/25 04/04/25 04/05/25 15:00 23:00 07:00 Intake Total 0 ml Balance 0 ml medications Current Medications Medications Dose Ordered Sig/Shanika Route Start Time Stop Time Status Last Admin Dose Admin Ondansetron HCl 4 mg Q4HP PRN IV 04/05/25 02:00 Docusate Sodium 100 mg BIDPRN PRN PO 04/05/25 02:00 04/05/25 02:35 100 MG Lactulose 30 ml BIDP PO 04/05/25 10:00 04/05/25 09:00 30 ML Benazepril HCl 40 mg DAILY PO 04/05/25 10:00 04/05/25 10:05 40 MG Gabapentin 100 mg BID PO 04/05/25 10:00 04/05/25 09:00 100 MG Pantoprazole Sodium 40 mg DAILY IV 04/06/25 10:00 Clindamycin Phosphate 50 ml @ 50 mls/hr Q8HR IV 04/05/25 14:00 04/05/25 17:07 50 MLS/HR Polyethylene Glycol 17 gm DAILY PO 04/05/25 15:30 04/05/25 17:07 17 GM Examination General: Patient alert and oriented in person, place and time. Patient following commands. HEENT: Normocephalic, atraumatic, dry mucous membranes Respiratory/pulmonary: Clear lungs bilaterally, vesicular murmurs present in almost all lung shanks, no associated crackles or wheezes. Cardiovascular: Normal heart sounds S1 and S2 with no associated murmurs Abdomen: Mild tenderness on abdominal palpation, more pronounced on right lower abdomen Extremities: Right index finger erythema, elevated temperature, tenderness. No purulent discharge/abscess. Peripheral Pulses: 3+ Radial (R). 3+ Radial (L). 3+ Dorsalis pedis (R). 3+ Dorsalis pedis(L) Skin: No rashes or pruritus, there is no sacral edema present at this time. Neurological: Intact cranial nerves with no focal neurologic deficits laboratory and microbiology Laboratory Tests 04/05/25 05:29 Test 04/05/25 05:29 Range/Units Serum Glucose 122 H 74-106 mg/dL Problem List/Assessment/Plan Problem List/Assessment/Plan Stercoral proctitis Severe constipation Intractable abdominal pain due to above Abdomen/Pelvis CT: [id number]-[id number] amount of stool distending the rectum with lower rectal wall thickening and presacral fat stranding. The colonic stool burden is overall moderate. Distended urinary bladder. Tap water enema Fecal disimpaction completed Continue Colace, Lactulose Supportive management with IV fluids, pain management, Zofran Hypomagnesemia Magnesium supplemented Hypertension Benazeoril 40 MG PO daily Multiple sclerosis Gabapentin 100 MG PO bid Index finger Felon Continue clindamycin IV q.8h Hyperthyroidism TSH 0.15 DIET: Clear liquid diet DVT PROPHYLAXIS: Lovenox GI PROPHYLAXIS: Pepcid; avoiding Protonix context of using IV clindamycin CODE STATUS: Goals of care discussed with patient at bedside for more than 19 minutes. Full code DISPOSITION: Med/surge This medical document was created using an electronic medical record system with [employer] direct computerized dictation system. Although this document has been carefully reviewed, there may still be some phonetic and typographical errors. These areas are purely typographical due to imperfections of the software programs, and do not reflect any compromise in the patient's medical care. Patient's status and plan discussed with the patient. Case discussed with Dr. Reed Plan discussed with: Patient, Spouse, Son, Other (nurses) My Orders My Orders Orders - FRANCK BURGER RESIDENT Procedure Category Date Status Time Clindamycin 300mg Iv PHA 04/05/25 In Process (Cleocin Iv) 14:00 Date of Service: Apr 05, 2025 Billing Provider: HUSSAIN REED MD Common Visit Codes: [id number] INP/OBS CARE(HIGH) FRANCK BURGER RESIDENT Apr 05, 2025 17:18 HUSSAIN REED MD Apr 06, 2025 22:41
[2025-04-05] MEDS: FAMOTIDINE 20 MG TAB PO ONE (19:26)
[2025-04-06 01:12] VITALS: BP 133/75; PULSE 80; RESP 18; TEMP 98.4; O2SAT 98
[2025-04-06 05:32] VITALS: BP 138/75; PULSE 82; RESP 18; TEMP 98.4; O2SAT 96
[2025-04-06 06:58] LABS: Chloride 104 mmol/L (98-107); Sodium 143 mmol/L (136-145)
[2025-04-06 06:59] LABS: Anion Gap 13 (5-15); Calcium 9.4 mg/dL (8.7-10.4); Carbon Dioxide 26 mmol/L (20-31)
[2025-04-06 07:01] LABS: Potassium 3.4 mmol/L (3.5-5.1)
[2025-04-06 07:04] LABS: BUN/Creatinine Ratio 11.3 (10.0-20.0)
[2025-04-06 07:06] LABS: Blood Urea Nitrogen 6 mg/dL (9-23); Glucose 171 mg/dL (74-106)
[2025-04-06 08:00] VITALS: PULSE 80; RESP 18; O2SAT 99
[2025-04-06 09:00] VITALS: BP 150/80; PULSE 80; RESP 17; TEMP 98.7; O2SAT 97
[2025-04-06] MEDS: FAMOTIDINE 20 MG TAB PO SCH (09:23)
[2025-04-06] MEDS: POTASSIUM EFFERVESENT TAB 25 MEQ PO ONE (09:23)
[2025-04-06] MEDS ORDERED: PANTOPRAZOLE 40 MG/10 ML VIAL INJ IV SCH (10:00)
--- NOTE | 2025-04-06 16:52 | DVHDSRES ---
Discharge Summary Date of Admission Resident Creating Document: FRANCK BURGER RESIDENT Apr 05, 2025 at 01:54 Date of Discharge: Apr 06, 2025 Labs/Diagnostic Data: Laboratory Results Test 04/06/25 04:42 04/05/25 08:18 04/05/25 06:52 04/05/25 05:29 Sodium Level 143 mmol/L (136-145) Potassium Level 3.4 mmol/L (3.5-5.1) Chloride Level 104 mmol/L (98-107) Carbon Dioxide Level 26 mmol/L (20-31) Anion Gap 13 (5-15) Blood Urea Nitrogen 6 mg/dL (9-23) Creatinine 0.53 mg/dL (0.550-1.02) Glomerular Filtration Rate Calc 101 mL/min (>90) BUN/Creatinine Ratio 11.3 (10.0-20.0) Serum Glucose 171 mg/dL (74-106) Calcium Level 9.4 mg/dL (8.7-10.4) Vitamin B12 Level 929 pg/mL (211-911) Folic Acid 9.92 ng/mL (>5.38) Urine Opiates Screen Pos (NEGATIVE) Urine Fentanyl Screen Neg (NEGATIVE) Urine Barbiturates Screen Neg (NEGATIVE) Urine Phencyclidine Screen Neg (NEGATIVE) Urine Amphetamines Screen Neg (NEGATIVE) Urine Benzodiazepines Screen Neg (NEGATIVE) Urine Cocaine Screen Neg (NEGATIVE) Urine Cannabinoids Screen Neg (NEGATIVE) POC Glucose 126 mg/dl (70-106) White Blood Count 10.3 10^3/uL (4.4-10.8) Red Blood Count 3.68 10^6/uL (4.0-5.20) Hemoglobin 13.1 g/dL (12.2-16.2) Hematocrit 38.0 % (36.0-46.0) Mean Corpuscular Volume 103.3 fL (80.0-100.0) Mean Corpuscular Hemoglobin 35.7 pg (28.0-32.0) Mean Corpuscular Hemoglobin Concent 34.5 g/dL (32.0-36.0) Red Cell Distribution Width 15.9 % (11.8-14.3) Platelet Count 250 10^3/uL (140-450) Mean Platelet Volume 7.0 fL (6.9-10.8) Neutrophils (%) (Auto) 87.4 % (37.0-80.0) Lymphocytes (%) (Auto) 7.4 % (10.0-50.0) Monocytes (%) (Auto) 5.1 % (0.0-12.0) Eosinophils (%) (Auto) 0.0 % (0.0-7.0) Basophils (%) (Auto) 0.1 % (0.0-2.0) Neutrophils # (Auto) 9.0 10 ^3/uL (1.6-8.6) Lymphocytes # (Auto) 0.8 10 ^3/uL (0.4-5.4) Monocytes # (Auto) 0.5 10 ^3/uL (0-1.3) Eosinophils # (Auto) 0 10 ^3/uL (0-0.8) Basophils # (Auto) 0 10 ^3/uL (0-0.2) Nucleated Red Blood Cells 0.0 % Total Bilirubin 0.7 mg/dL (0.2-1.0) Aspartate Amino Transferase (AST) 21 U/L (13-40) Alanine Aminotransferase (ALT) 11 U/L (7-40) Alkaline Phosphatase 69 U/L (46-116) Total Protein 6.3 g/dL (5.7-8.2) Albumin 3.8 g/dL (3.2-4.8) Thyroid Stimulating Hormone (TSH) 0.15 uIU/mL (0.55-4.78) Free Thyroxine (T4) Calculated 1.05 ng/dL (0.89-1.76) Total Triiodothyronine (TT3) 0.97 ng/mL (0.60-1.81) Hepatitis B Surface Antigen Negative (Negative) Hepatitis C Antibody Negative (Negative) Test 04/04/25 23:45 04/04/25 08:18 Lactic Acid Level 2.0 mmol/L (0.4-2.0) Magnesium Level 1.5 mg/dL (1.6-2.6) Direct Bilirubin 0.3 mg/dL (<0.3) Lipase 24 U/L (12-53) Urine Color Light-yellow (Yellow) Urine Clarity Clear (Clear) Urine pH 5.5 (5.0-9.0) Urine Specific [place] 1.013 (1.001-1.035) Urine Protein Negative (Negative) Urine Ketones Negative (Negative) Urine Blood Negative /uL (Negative) Urine Nitrite Negative (Negative) Urine Bilirubin Negative (Negative) Urine Urobilinogen Normal mg/dL (Negative) Urine Leukocyte Esterase Negative /uL (Negative) Urine RBC 1 /hpf (0 - 4) Urine Microscopic WBC 2 /HPF (0-5) Urine Squamous Epithelial Cells None seen /hpf (<5) Urine Bacteria None seen /hpf (None Seen) Urine Hyaline Casts Few /lpf (0 - 2) Urine Glucose Normal mg/dL (Normal) Other Laboratory Tests 04/06/25 04:42 04/05/25 05:29 Brief Hx & Hospital Course: Brief history on admission: This is a 65-year-old female with past medical history of multiple sclerosis, breast cancer s/p chemotherapy, radiotherapy at [facility] (in remission 6 months back), diabetes mellitus, hypertension, hyperlipidemia, presented to the ER with complaint of lower abdominal pain. The pain is sharp and burning, started 2-3 days ago, more severe on the right side. The patient reported severe constipation approximately 5-6 days prior to admission, associated with nausea and vomiting. She reports 3 vomiting episodes without hematemesis and leaky, watery stools 2 days back. The patient recently completed a course of antibiotics for an infected soft tissue infection of index finger at [place]. Patient has never completed colonoscopy. Hospital course: Patient was admitted along the lines of severe abdominal pain and constipation due to stercoral proctitis. Abdomen/Pelvis CT showed ynpcoegu-hq-[id number] amount of stool distending the rectum with lower rectal wall thickening and presacral fat stranding. The colonic stool burden is overall moderate. Distended urinary bladder. Started on supportive management with IV fluids, pain management, Zofran. Patient underwent fecal disimpaction followed by tap water enema, Colace and lactulose. Electrolyte abnormalities were corrected during her stay. Patient also complain of index finger fell on, started on IV clindamycin. Further evaluation and management could not be completed as the patient requested to leave AMA. Patient was counseled on diagnosis, recommend in treatment and risks of leaving AMA on several occasions. Alternatives to living were offered, including continued inpatient management. Patient verbalized the understanding of risks, benefits and alternatives on several occasions. Patient signed AMA form and was discharged against medical advice. Conditions managed during stay: Stercoral proctitis Severe constipation Intractable abdominal pain due to above Hypomagnesemia Hypertension Multiple sclerosis Index finger Felon Hyperthyroidism Operations or Procedures COMPUTERIZED TOMOGRAPHY ABDOMEN AND PELVIS WITHOUT CONTRAST REASON FOR EXAM: LEFT LOWER QUADRANT ABDOMINAL PAIN COMPARISON: None TECHNIQUE: Spiral scans were acquired from the diaphragm to the symphysis pubis without intravenous contrast administration. 2-D coronal and sagittal reformatted images were provided. Radiation optimization: All CT scans at this facility use at least one of these dose optimization techniques: Automated exposure control mA and/or kV adjustment per patient size (includes targeted exams where dose is matched to clinical indication) or iterative reconstruction. RADIATION DOSE: CTDI: 7 mGy DLP: 374 mGy-cm FINDINGS: There is minimal platelike atelectasis of the lung bases. There is no pleural effusion. There is no pericardial effusion. The spleen is not enlarged. The liver is normal in size and contour. Evaluation of the abdominal organs is suboptimal in the absence of intravenous contrast. No calcified gallstone is identified. Unenhanced appearance of the pancreas is grossly unremarkable. The adrenal glands appear normal. The kidneys are similar in size. There is no hydronephrosis of either kidney. The urinary bladder is significantly distended. The uterus and ovaries are within normal limits. No free fluid is identified in the abdomen or pelvis. There is no pathologic lymphadenopathy identified by size criteria. There is no abdominal aortic aneurysm. There is a ceohwzed-py-rnyku amount of stool distending the rectum. There is lower rectal wall thickening. There is presacral fat stranding. The colonic stool burden is overall moderate. The appendix is not seen and may be absent. There is no pericecal inflammatory change to suggest acute appendicitis. There is no pathologic distention of the small bowel to suggest obstruction. No acute osseous abnormality is identified. There is extensive degenerative change throughout the visualized spine. IMPRESSION: Flnasjdz-kb-[id number] amount of stool distending the rectum with lower rectal wall thickening and presacral fat stranding suggestive of stercoral proctitis. The colonic stool burden is overall moderate. Correlate clinically for constipation. Distended urinary bladder. Condition at Discharge: Undetermined Final Diagnosis/Problems List Stercoral proctitis Severe constipation Intractable abdominal pain due to above Hypomagnesemia Hypertension Multiple sclerosis Index finger Felon Hyperthyroidism Discharge Disposition: AMA Discharge Instruct/Medications Scheduled Buspirone Hcl (Buspirone Hcl), 7.5 MG PO BID, (Reported) Gabapentin (Gabapentin), 100 MG PO BID, (Reported) Metformin Hydrochloride (Metformin Hcl), 1 TAB PO BID Simvastatin (Simvastatin), 40 MG OR HS, (Reported) Zolpidem Tartrate (Zolpidem Tartrate), 5 MG PO HS, (Reported) Scheduled PRN Hydroxyzine Pamoate (Hydroxyzine Pamoate), 25 MG PO Q6HPRN PRN for ANXIETY, (Reported) Discharge Statement: "Patient was advised to return to the ER or call 911 if any headaches, dizziness, shortness of breath, chest pain, abdominal pain, bleeding, fevers, or worsening of medical condition. Patient was counseled about treatment plan, medications, possible side effects, patientverbalized understanding. All questions were answered to the best of my ability. This discharge took greater then 30 minutes in planning, reviewing documentation, counseling the patient, and discussing with other team members." ASSESSMENT ASSESSMENT Assessment Date of Service: Apr 06, 2025 Billing Provider: HUSSAIN REED MD Common Visit Codes: [id number]/[id number] DISCH DAY >30min FRANCK BURGER Apr 06, 2025 16:52 HUSSAIN REED MD Apr 06, 2025 22:41
== END 2025-04-06 11:00 | disposition left against medical advice (07) | DRG 392 ==
LOC: ER 21:42 → EDBD 21:42 → OVERFLOW 04-05 01:54 → WEST WING 04-05 13:13
PROVIDERS: ADMIT Internal Medicine; ATTEND Internal Medicine
DX: K52.89 Other specified noninfective gastroenteritis and colitis (principal); E05.90 Thyrotoxicosis, unspecified without thyrotoxic crisis or storm; E11.9 Type 2 diabetes mellitus without complications; E78.5 Hyperlipidemia, unspecified; L03.011 Cellulitis of right finger; I10 Essential (primary) hypertension; J44.9 Chronic obstructive pulmonary disease, unspecified; K59.00 Constipation, unspecified; E83.42 Hypomagnesemia; G35.D Multiple sclerosis, unspecified; Z53.29 Procedure and treatment not carried out because of patient's decision for other reasons; Z88.6 Allergy status to analgesic agent; Z88.5 Allergy status to narcotic agent; Z90.49 Acquired absence of other specified parts of digestive tract; Z87.891 Personal history of nicotine dependence; Z85.3 Personal history of malignant neoplasm of breast; Z80.3 Family history of malignant neoplasm of breast
CPT/HCPCS: 36415; 80048; 80053; 80076; 80307; 81001; 82607; 82746; 82962; 83605; 83690; 83735; 84439; 84443; 84480; 85025; 86803; 87340; G0378; J1885; J2405; J3490